=== PATIENT | female | born 1950 | race Caucasian/White ===

== ENCOUNTER 2021-06-22 17:37 | Outpatient (CLI) | payer MEDICARE, OTHER, SELFPAY ==
[2021-06-22 17:41] VITALS: BP 137/83; PULSE 85; RESP 16; TEMP 36.7; O2SAT 100; BMI 25.2
[2021-06-22 18:45] VITALS: BP 154/80; PULSE 75; RESP 16; TEMP 36.8; O2SAT 100
[2021-06-22 19:55] VITALS: BP 153/89; PULSE 77; RESP 16; TEMP 36.8; O2SAT 100
== END 2021-06-22 19:55 | disposition home or self-care (01) ==
LOC: MS3OUT 17:37 → MS3 17:38
PROVIDERS: Referring Provider Nurse Practitioner Adult Health; Visit Provider Nurse Practitioner Adult Health
DX: Z23 Encounter for immunization (principal); U07.1 COVID-19
CPT/HCPCS: J7050; M0245; Q0245

== ENCOUNTER → 2024-11-21 | Outpatient (REF) | payer MEDICARE, SELFPAY ==
[2024-11-21 08:26] LABS: Hematocrit 30.9 % (37-47); Hemoglobin 10.2 g/dL (12.0-15.0); Mean Corpuscular Hgb 32.7 pg (27.0-32.0); Mean Platelet Vol. 9.7 fl (6.2-12.0); Platelet Count 302 K/mm3 (150-450); RBC Distribution Width CV 13.3 % (11.6-14.6); RBC Distribution Width SD 47.7 fl (35.1-43.9); Red Blood Count 3.12 M/mm3 (4.2-5.4); White Blood Count 5.9 K/mm3 (4.4-11.0)
[2024-11-21 08:48] LABS: Anion Gap 12 (5-15); BUN 23 mg/dL (4-19); BUN/Creat Ratio 35.1 RATIO (10-20); Calcium,Total 9.3 mg/dL (7.6-11.0); Carbon Dioxide 21.5 mmol/L (21.0-32.0); Chloride 103 mmol/L (98-108); Creatinine, Serum 0.65 mg/dL (0.70-1.20); EST Glomerular Filtration Rate 92 (>60); Glucose 111 mg/dL (70-99); Potassium 4.6 mmol/L (3.3-5.1); Sodium Level 137 mmol/L (133-145)
== END ==
LOC: OLS.ACH 05:00
PROVIDERS: Visit Provider Internal Medicine
DX: I69.098 Other sequelae following nontraumatic subarachnoid hemorrhage (principal); D64.9 Anemia, unspecified
CPT/HCPCS: 36415; 80048; 85027